=== PATIENT | female | born 1935 | race Caucasian/White ===

== ENCOUNTER 2018-07-28 11:59 | Inpatient (IN) ==
[2018-07-28] MEDS ORDERED: Ipratropium/Albuterol Neb 3 ML IH ONE (13:21)
--- NOTE | 2018-07-28 13:24 | Emergency Department Note ---
Disposition Clinical Impression: Bilateral pleural effusion, SOB (shortness of breath), Renal insufficiency, Bilateral leg edema Dyspnea Qualifiers: Dyspnea type: unspecified Qualified Code(s): R06.00 - Dyspnea, unspecified Disposition: Admitted As Inpatient Condition: Fair Referrals: Taina Saunders ASSOCIATE VICE PRESIDENT [Advanced Practice Nurse] - Forms: ED Satisfaction Letter Time of Disposition: 15:52 SOB HPI - General Chief Complaint: ED Shortness of Breath/Dyspnea Stated Complaint: Hypertension,FLAQUITO Time Seen by Provider: 07/28/18 13:05 - History of Present Illness 83-year-old female presents with three-day history of feeling like she cannot get enough air, and feeling as though her blood pressure is running high. Patient denies any history of smoking/smoke exposure, fever, lightheadedness, chest pain, respiratory disease. She does endorse a mild dry cough which she attributes to postnasal drainage, and a runny nose which she has had for 2 years. Patient denies any abdominal pain, problems with urination or constipation. Patient does report a history of mastectomy in December 2015. She is on metoprolol for blood pressure control and states that she is normally around 140-150, but is currently 161/92 on the monitor in the room. Patient reports a history of sick contact with her aunt, but states that she was using copious amounts of Lysol while around this person. - Related Data Home Medications Medication Instructions Recorded Confirmed Metoprolol Tartrate [Lopressor] 50 mg PO BID 04/04/16 07/10/18 Furosemide [Lasix] 20 mg PO DAILY PRN 12/05/17 07/10/18 Previous Rx's Medication Instructions Recorded Loratadine [Claritin] 10 mg PO DAILY #90 tablet 11/01/16 Loperamide [Imodium] 2 cap PO AD PRN #80 capsule 05/27/17 Ondansetron ODT [Zofran ODT] 4 mg SL Q6HR #30 tab.rapdis 10/11/17 Hydrocortisone 2.5% CREAM [Cortaid] 1 appl TP BID #1 tube 01/06/18 Cyclobenzaprine [Flexeril] 10 mg PO BID PRN #60 tablet 02/17/18 Anastrozole [Arimidex] 1 mg PO DAILY #30 tablet 03/24/18 Potassium Chloride [K-Tab ER] 20 meq PO BID #60 tablet.er 03/24/18 Pantoprazole Sodium [Protonix] 40 mg PO BID #60 tablet. 05/06/18 Sucralfate [Carafate] 1 gm PO TID #90 tablet 05/06/18 Lenalidomide [Revlimid] 10 mg PO DAILY #14 capsule 07/23/18 Allergies Allergy/AdvReac Type Severity Reaction Status Date / Time ciprofloxacin [From Cipro] AdvReac Gastrointestinal Verified 07/10/18 09:57 Upset All systems ED: reviewed and negative except as stated. Review of Systems: As Per HPI Constitutional: Denies: fever, chills ENT ED: Reports: congestion Cardiovascular: Reports: dyspnea on exertion. Denies: chest pain Respiratory: Reports: cough, dyspnea. Denies: wheezes, hemoptysis, sputum production Gastrointestinal: Denies: abdominal pain, nausea, vomiting, diarrhea, constipation Genitourinary: Denies: urgency, dysuria, frequency Past Medical History - Past Medical History Medical history: Reports: cancer, hypertension, other Surgical history: Reports: other Psychiatric history: Reports: no psych history COMMODITY LOAN CLERK history: Reports: no COMMODITY LOAN CLERK history - Social History Smoking Status: Former smoker Smokeless Tobacco Status: No Alcohol use: Reports: none Drug use: Reports: none Physical Exam - General Limitations: no limitations General appearance: alert, in no apparent distress - Head Head exam: atraumatic, normocephalic - Eye Eye exam: Present: normal appearance - Respiratory Respiratory exam: Present: normal lung sounds bilaterally - Cardiovascular Cardiovascular exam: Present: regular rate, normal rhythm, +S3 - Abdominal Exam Abdominal exam: Present: soft, Non-Tender - Extremities Exam Extremities exam: Present: other (mild LE edema to ankle) - Neurological Exam Neurological exam: Present: alert, oriented X3 - Psychiatric Psychiatric exam: Present: normal affect, normal mood - Skin Skin exam: Present: warm, dry, intact Course Course Narrative: Patient looks well on exam and does not appear to be in any apparent distress, she is saturating appropriately on room air, and she does not have any wheezes on exam. We will perform a portable chest x-ray, administer a DuoNeb, and perform basic laboratory work to include CBC, BMP, troponin. Additionally we will perform an EKG. - Reevaluation(s) Reevaluation #1: After breathing treatment, patient states that she feels as it is easier for her to breathe. Patient's chest x-ray was concerning for bilateral pleural effusio ns, as well as some infiltrates in the left lower lobe concerning for pneumonia. Additionally chest x-ray showed findings consistent with congestive heart failure, along with the physical exam findings of mild bilateral lower extremity edema. Given the patient's advanced age, as well as comorbidities, it is likely she will need to be admitted for further treatment. Time: 14:51 Reevaluation #2: Pt's BNP was >5,000 consisted with CHF exacerbation. Pt will be admitted to hospitalist service. Dr. Grove accepts. Time: 15:48 Vital Signs Temperature 97.6 F 07/28/18 12:03 Pulse Rate 72 07/28/18 12:03 Respiratory Rate 16 07/28/18 12:03 Blood Pressure 172/92 07/28/18 12:03 O2 Sat by Pulse Oximetry 92 07/28/18 12:03 Temperature 97.6 F 07/28/18 13:57 Pulse Rate 72 07/28/18 13:57 Respiratory Rate 16 07/28/18 13:57 Blood Pressure 172/92 07/28/18 13:57 O2 Sat by Pulse Oximetry 100 07/28/18 13:57 Oxygen Delivery Oxygen Delivery Room Air Shortness of Breath/Dyspnea - [facility] Narrative Medical decision making narrative: Pt admitted to Dr. Combs that her symptoms began in bed while she was sleeping and she was having trouble laying flat. Additionally, her CXR was concerning for osiel pleural effusions and a questionable infiltrate in her LLL. Given her osiel LE edema, difficulty breathing, elevated BNP, elevated troponin, and multiple comorbidities, pt will be admitted for optimization of medical therapy and possible cardiac workup. Pt verbalized understanding and agreement with the plan. Pt was given an opportunity for questions and all of her concerns were addressed. - Differential Diagnosis Likely: congestive heart failure - Medical Records Medical records reviewed: Yes I reviewed the patient's medical records. - Lab Data Lab results reviewed: Yes I reviewed the patient's lab results. Result diagrams: 07/28/18 13:44 07/28/18 13:44 Lab Results 07/28/18 07/28/18 07/28/18 Range/Units 13:44 13:44 13:44 WBC 4.9 (4.3-11.1) K/mcL RBC 3.66 L (3.82-4.97) M/mcL Hgb 11.5 (11.5-15.4) g/dL Hct 35.4 (35.3-44.9) % MCV 96.7 (83.0-100.0) fL MCH 31.4 (28.0-33.3) pg MCHC 32.5 (31.6-35.5) g/dL RDW 17.3 H (11.5-14.5) % Plt Count 174 (140-400) K/mcL MPV 9.5 (9.4-12.4) fL Immature Gran % 0.2 (0-4) % Seg Neutrophils % 55.1 % Lymphocytes % 33.8 % Monocytes % 9.7 % Eosinophils % 0.4 % Basophils % 0.8 % Neutrophils # 2.7 (1.6-8.9) K/mcL Lymphocytes # 1.6 (0.6-4.6) K/mcL Monocytes # 0.5 (0.0-1.3) K/mcL Eosinophils # 0.0 (0.0-0.6) K/mcL Basophils # 0.0 (0.0-0.2) K/mcL Sodium 137 (136-145) mEq/L Potassium 5.1 (3.5-5.1) mEq/L Chloride 106 (98-107) mEq/L Carbon Dioxide 19 L (23-29) mEq/L BUN 30 H (8-23) mg/dL Creatinine 1.65 H (0.60-1.20) mg/dL Est GFR ( Amer) 36 L (> 60) Est GFR (Non-Af Amer) 30 L (> 60) BUN/Creatinine Ratio 18 (6-26) Glucose 93 (70-105) mg/dL Calculated Osmolality 290 (280-300) Calcium 9.0 (8.6-10.3) mg/dL Troponin I 0.06 H* (< 0.04) ng/mL B-Natriuretic Peptide (Less than 100) pg/mL 07/28/18 Range/Units 13:44 WBC (4.3-11.1) K/mcL RBC (3.82-4.97) M/mcL Hgb (11.5-15.4) g/dL Hct (35.3-44.9) % MCV (83.0-100.0) fL MCH (28.0-33.3) pg MCHC (31.6-35.5) g/dL RDW (11.5-14.5) % Plt Count (140-400) K/mcL MPV (9.4-12.4) fL Immature Gran % (0-4) % Seg Neutrophils % % Lymphocytes % % Monocytes % % Eosinophils % % Basophils % % Neutrophils # (1.6-8.9) K/mcL Lymphocytes # (0.6-4.6) K/mcL Monocytes # (0.0-1.3) K/mcL Eosinophils # (0.0-0.6) K/mcL Basophils # (0.0-0.2) K/mcL Sodium (136-145) mEq/L Potassium (3.5-5.1) mEq/L Chloride (98-107) mEq/L Carbon Dioxide (23-29) mEq/L BUN (8-23) mg/dL Creatinine (0.60-1.20) mg/dL Est GFR ( Amer) (> 60) Est GFR (Non-Af Amer) (> 60) BUN/Creatinine Ratio (6-26) Glucose (70-105) mg/dL Calculated Osmolality (280-300) Calcium (8.6-10.3) mg/dL Troponin I (< 0.04) ng/mL B-Natriuretic Peptide > 5000 H (Less than 100) pg/mL - Radiology Data Radiology results reviewed: Yes I reviewed the patient's radiology results. - EKG Data EKG attestation: Yes I reviewed and interpreted this EKG. EKG results narrative: HR 68, sinus rhythm, left axis. AK 218 which is slightly prolonged. No evidence of ST elevation or depression. EKG largely unchanged from previous on 04/27/18 which shows Left anterior fascicular block, and LVH with secondary repolarization abnormality. No signs of acute ischemia.
--- NOTE | 2018-07-28 13:36 | Emergency Department Note ---
Disposition Clinical Impression: Bilateral pleural effusion, SOB (shortness of breath), Renal insufficiency Disposition: Admitted As Inpatient Referrals: Taina Saunders CNP [Primary Care Provider] - Forms: ED Satisfaction Letter General Adult HPI - General Chief complaint: ED Shortness of Breath/Dyspnea Stated complaint: Hypertension,FLAQUITO Time Seen by Provider: 07/28/18 13:05 Limitations: no limitations - History of Present Illness Pain Scale: 0 - Related Data Home Medications Medication Instructions Recorded Confirmed Metoprolol Tartrate [Lopressor] 50 mg PO BID 04/04/16 07/10/18 Furosemide [Lasix] 20 mg PO DAILY PRN 12/05/17 07/10/18 Previous Rx's Medication Instructions Recorded Loratadine [Claritin] 10 mg PO DAILY #90 tablet 11/01/16 Loperamide [Imodium] 2 cap PO AD PRN #80 capsule 05/27/17 Ondansetron ODT [Zofran ODT] 4 mg SL Q6HR #30 tab.rapdis 10/11/17 Hydrocortisone 2.5% CREAM [Cortaid] 1 appl TP BID #1 tube 01/06/18 Cyclobenzaprine [Flexeril] 10 mg PO BID PRN #60 tablet 02/17/18 Anastrozole [Arimidex] 1 mg PO DAILY #30 tablet 03/24/18 Potassium Chloride [K-Tab ER] 20 meq PO BID #60 tablet.er 03/24/18 Pantoprazole Sodium [Protonix] 40 mg PO BID #60 tablet. 05/06/18 Sucralfate [Carafate] 1 gm PO TID #90 tablet 05/06/18 Lenalidomide [Revlimid] 10 mg PO DAILY #14 capsule 07/23/18 Allergies Allergy/AdvReac Type Severity Reaction Status Date / Time ciprofloxacin [From Cipro] AdvReac Gastrointestinal Verified 07/10/18 09:57 Upset Past Medical History - Past Medical History Medical history: Reports: cancer, hypertension, other Surgical history: Reports: other Psychiatric history: Reports: no psych history SERVICES MGR history: Reports: no SERVICES MGR history - Social History Smoking Status: Former smoker Smokeless Tobacco Status: No Alcohol use: Reports: none Drug use: Reports: none Physical Exam - General Limitations: no limitations General appearance: alert, in no apparent distress Course Vital Signs Temperature 97.6 F 07/28/18 12:03 Pulse Rate 72 07/28/18 12:03 Respiratory Rate 16 07/28/18 12:03 Blood Pressure 172/92 07/28/18 12:03 O2 Sat by Pulse Oximetry 92 07/28/18 12:03 Temperature 97.6 F 07/28/18 13:57 Pulse Rate 72 07/28/18 13:57 Respiratory Rate 16 07/28/18 13:57 Blood Pressure 172/92 07/28/18 13:57 O2 Sat by Pulse Oximetry 100 07/28/18 13:57 Oxygen Delivery Oxygen Delivery Room Air Medical Decision Making - MDM Narrative Medical decision making narrative: Patient has bilateral pleural effusions. Small. BNP elevated. Troponin is always elevated. ekg ok will admit needs cardiac eval. - Medical Records Medical records reviewed: Yes I reviewed the patient's medical records. - Lab Data Lab results reviewed: Yes I reviewed the patient's lab results. Result diagrams: 07/28/18 13:44 07/28/18 13:44 Lab Results 07/28/18 07/28/18 07/28/18 Range/Units 13:44 13:44 13:44 WBC 4.9 (4.3-11.1) K/mcL RBC 3.66 L (3.82-4.97) M/mcL Hgb 11.5 (11.5-15.4) g/dL Hct 35.4 (35.3-44.9) % MCV 96.7 (83.0-100.0) fL MCH 31.4 (28.0-33.3) pg MCHC 32.5 (31.6-35.5) g/dL RDW 17.3 H (11.5-14.5) % Plt Count 174 (140-400) K/mcL MPV 9.5 (9.4-12.4) fL Immature Gran % 0.2 (0-4) % Seg Neutrophils % 55.1 % Lymphocytes % 33.8 % Monocytes % 9.7 % Eosinophils % 0.4 % Basophils % 0.8 % Neutrophils # 2.7 (1.6-8.9) K/mcL Lymphocytes # 1.6 (0.6-4.6) K/mcL Monocytes # 0.5 (0.0-1.3) K/mcL Eosinophils # 0.0 (0.0-0.6) K/mcL Basophils # 0.0 (0.0-0.2) K/mcL Sodium 137 (136-145) mEq/L Potassium 5.1 (3.5-5.1) mEq/L Chloride 106 (98-107) mEq/L Carbon Dioxide 19 L (23-29) mEq/L BUN 30 H (8-23) mg/dL Creatinine 1.65 H (0.60-1.20) mg/dL Est GFR ( Amer) 36 L (> 60) Est GFR (Non-Af Amer) 30 L (> 60) BUN/Creatinine Ratio 18 (6-26) Glucose 93 (70-105) mg/dL Calculated Osmolality 290 (280-300) Calcium 9.0 (8.6-10.3) mg/dL Troponin I 0.06 H* (< 0.04) ng/mL B-Natriuretic Peptide (Less than 100) pg/mL 07/28/18 Range/Units 13:44 WBC (4.3-11.1) K/mcL RBC (3.82-4.97) M/mcL Hgb (11.5-15.4) g/dL Hct (35.3-44.9) % MCV (83.0-100.0) fL MCH (28.0-33.3) pg MCHC (31.6-35.5) g/dL RDW (11.5-14.5) % Plt Count (140-400) K/mcL MPV (9.4-12.4) fL Immature Gran % (0-4) % Seg Neutrophils % % Lymphocytes % % Monocytes % % Eosinophils % % Basophils % % Neutrophils # (1.6-8.9) K/mcL Lymphocytes # (0.6-4.6) K/mcL Monocytes # (0.0-1.3) K/mcL Eosinophils # (0.0-0.6) K/mcL Basophils # (0.0-0.2) K/mcL Sodium (136-145) mEq/L Potassium (3.5-5.1) mEq/L Chloride (98-107) mEq/L Carbon Dioxide (23-29) mEq/L BUN (8-23) mg/dL Creatinine (0.60-1.20) mg/dL Est GFR ( Amer) (> 60) Est GFR (Non-Af Amer) (> 60) BUN/Creatinine Ratio (6-26) Glucose (70-105) mg/dL Calculated Osmolality (280-300) Calcium (8.6-10.3) mg/dL Troponin I (< 0.04) ng/mL B-Natriuretic Peptide > 5000 H (Less than 100) pg/mL - Radiology Data Radiology results reviewed: Yes I reviewed the patient's radiology results. Critical Care Time Critical Care Time: No Attestation Statement - Attestation Attestation: I examined this patient and my medical decision-making was reviewed with the Resident Physician. I agree with the documented findings, disposition and treatment plan as described except to the extent set forth below. 83-year-old female in presented to the emergency room for difficulty breathing. Symptom onset yesterday. States she feels that she cannot get enough air in. She denies any chest pain. No cough or sputum production. No fevers or chills. No new swelling or pain in her legs. No history of DVT or PE. She states she does have a history of breast cancer and had a mastectomy done 2016. 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 That was on 2016. She has no other complaints at this time. She specifically denies any chest pain. No recent illness or sickness. No cough or sputum. No smoking. No lung disease. Her oxygen saturations are normal on room air. They are running anywhere from 97 8% on room air. She is not tachycardic. EKG was unremarkable. Check some screening labs as well as a chest x-ray.
[2018-07-28 14:03] LABS: Basophils % 0.8 %; Eosinophils % 0.4 %; Hematocrit 35.4 % (35.3-44.9); Hemoglobin 11.5 g/dL (11.5-15.4); Immature Granulocytes % 0.2 % (0-4); Lymphocytes # 1.6 K/mcL (0.6-4.6); Lymphocytes % 33.8 %; Mean Corpuscular HGB Conc 32.5 g/dL (31.6-35.5); Mean Corpuscular Hemoglobin 31.4 pg (28.0-33.3); Mean Corpuscular Volume 96.7 fL (83.0-100.0); Mean Platelet Volume 9.5 fL (9.4-12.4); Monocytes # 0.5 K/mcL (0.0-1.3); Monocytes % 9.7 %; Neutrophils # 2.7 K/mcL (1.6-8.9); Platelet Count 174 K/mcL (140-400); Red Blood Count 3.66 M/mcL (3.82-4.97); Red Cell Distribution Width 17.3 % (11.5-14.5); Segmented Neutrophils % 55.1 %
[2018-07-28 14:25] LABS: Potassium 5.1 mEq/L (3.5-5.1)
[2018-07-28] MEDS ORDERED: Naloxone 0.4 MG/ML INJ IVP PRN (16:14)
[2018-07-28] MEDS ORDERED: Furosemide 20 MG/2 ML VIAL IVP ONE (16:17)
--- NOTE | 2018-07-28 16:30 | Internal Med History&Physical ---
Date of Encounter: 07/28/18 Time of Encounter: 09:00 Internal Medicine - H&P: HPI Chief complaint: Shortness of breath Admitted From: Home Plans for Post Hospital Care: Home History of present illness: Ms. Portillo is a 83 year old female present to ER for increased the shortness of breath. Past medical history is significant for systolic CHF with LVEF 45-50%, hypertension, breast cancer, multiple myeloma, anemia Patient has progressively increased shortness of breath in last 1- 2 days. Patient denies cough, fever, chest pain. Patient has mild nausea but no vomiting. Patient sleep on her side which make her feel relief. Patient is generally still doing daily activity. Patient has a history of systolic CHF and take Lasix in an as needed pattern and off Lasix for a while. Since yesterday, she noticed bilateral ankle swelling. In the emergency room, chest x-ray shows mild bilateral pleural effusion. BNP over 5000. Patient was admitted for CHF exacerbation. I have discussed CODE STATUS with this patient. Patient is AAO 3. Patient clearly told me she does not want CPR. Regarding intubation, she said she has not determined yet but agrees at this point documented as "accept intubation". She was informed she can change her mind any time and we can change her CODE STATUS. DNR CCA order placed. Past Med Surg Social Fam HX - Past Medical History Medical history: cancer, hypertension, other Additional medical history: htn. breast cancer,right. multiple myeloma Psychiatric history: no psych history - Past Surgical History Surgical History: other Additional surgical history: rt hip replacement. c section x2. LEFT MASTECTOMY - Social History Smoking Status: Former smoker Smokeless Tobacco Status: No Alcohol use: none Drug use: none - Family History Mother History Unknown: Yes Internal Medicine - H&P: Meds Metoprolol Tartrate [Lopressor] 50 mg PO BID 04/04/16 [History] Loratadine [Claritin] 10 mg PO DAILY #90 tablet 11/01/16 [Rx] Loperamide [Imodium] 2 cap PO AD PRN #80 capsule 05/27/17 [Rx] Ondansetron ODT [Zofran ODT] 4 mg SL Q6HR #30 tab.rapdis 10/11/17 [Rx] Furosemide [Lasix] 20 mg PO DAILY PRN 12/05/17 [History] Hydrocortisone 2.5% CREAM [Cortaid] 1 appl TP BID #1 tube 01/06/18 [Rx] Cyclobenzaprine [Flexeril] 10 mg PO BID PRN #60 tablet 02/17/18 [Rx] Anastrozole [Arimidex] 1 mg PO DAILY #30 tablet 03/24/18 [Rx] Potassium Chloride [K-Tab ER] 20 meq PO BID #60 tablet.er 03/24/18 [Rx] Pantoprazole Sodium [Protonix] 40 mg PO BID #60 tablet.dr 05/06/18 [Rx] Sucralfate [Carafate] 1 gm PO TID #90 tablet 05/06/18 [Rx] Lenalidomide [Revlimid] 10 mg PO DAILY #14 capsule 07/23/18 [Rx] Allergy/AdvReac Type Severity Reaction Status Date / Time ciprofloxacin [From Cipro] AdvReac Gastrointestinal Verified 07/10/18 09:57 Upset All Systems PM: A 10-system review of systems was performed and is negative for pertinent findings except as documented above in the HPI. - Constitutional Vitals: Temp Pulse Resp BP Pulse Ox 97.6 F 72 16 172/92 100 07/28/18 13:57 07/28/18 13:57 07/28/18 13:57 07/28/18 13:57 07/28/18 13:57 Exam: Pt is AAO x 3, in NAD HEENT: NC/AT, PERRL Neck: Supple, no JVD, no LAD Lungs: CTA b/l Heart: S1S2, RRR Abd: Soft, nontender, BS present Ext: ROM wnl, mild bilateral pedal edema Neuro: No focal deficit Internal Med - H&P Results - Labs CBC & Chem 7: 07/28/18 13:44 07/28/18 13:44 Labs: Short CBC 07/28/18 Range/Units 13:44 WBC 4.9 (4.3-11.1) K/mcL Hgb 11.5 (11.5-15.4) g/dL Hct 35.4 (35.3-44.9) % Plt Count 174 (140-400) K/mcL Neutrophils # 2.7 (1.6-8.9) K/mcL BMP 07/28/18 13:44 Sodium 137 Potassium 5.1 Chloride 106 Carbon Dioxide 19 L BUN 30 H Creatinine 1.65 H Glucose 93 Calcium 9.0 Cardiac Enzymes 07/28/18 Range/Units 13:44 Troponin I 0.06 H* (< 0.04) ng/mL - Impressions ITS Impressions Chest X-Ray 07/28/18 13:21 IMPRESSION: 1. Small bilateral pleural effusions with associated bibasilar atelectasis, new since the previous chest x-ray on 03/27/2016. Superimposed pneumonia cannot be excluded. D/ / 07/28/2018 14:38:07 Danny Walsh MD / jak Interpreting Provider: Danny Walsh MD - Assessment and plan (1) Acute on chronic combined systolic (congestive) and diastolic (congestive) heart failure Current Visit: Yes Status: Acute Assessment and plan: Patient has history of CHF with LVEF 45-50% and LV wall thickness. Consider combined systolic and diastolic CHF. Patient has a worsening shortness of breath with elevated BNP and newly developed bilateral pleural effusion. Patient also has increased bilateral ankle swelling. Consider CHF exacerbation. - Place patient on continuous cardiac monitoring - Lasix 20 mg IV once now. Started from tomorrow morning 20 mg IV daily - Strict I and O - Fluid restriction diet - Repeat echocardiogram (2) CKD (chronic kidney disease) stage 3, GFR 30-59 ml/min Current Visit: No Status: Suspected Assessment and plan: Creatinine is at baseline. Closely monitor creatinine level. Avoid nephrotoxic medications (3) Breast cancer Current Visit: No Status: Acute Assessment and plan: Had the surgery. Continue home medication anastrozole. Patient will follow-up with oncology as outpatient Qualifiers: Breast location: central portion of breast Laterality: left Qualified Code(s): C50.112 - Malignant neoplasm of central portion of left female breast; Z17.0 - Estrogen receptor positive status [ER+] (4) Multiple myeloma Current Visit: No Status: Chronic Assessment and plan: Continue home medication Revlimid, continue follow up with oncology as outpatie nt Qualifiers: Multiple myeloma remission status: not in remission Qualified Code(s): C90.00 - Multiple myeloma not having achieved remission (5) Hypertension Current Visit: No Status: Acute Assessment and plan: Poorly controlled hypertension. Will resume home medication, may adjust medication for better BP control Qualifiers: Hypertension type: essential hypertension Qualified Code(s): I10 - Essential (primary) hypertension - Time Spent With Patient Total time spent is greater than 50% in coordination of care (as documented) at patient's floor/unit and/or counseling patient: 40 minutes Greater than 35 minutes
[2018-07-28] MEDS: Sucralfate 1 GM TABLET PO SCH (18:19)
[2018-07-28 22:04] LABS: Potassium 3.7 mEq/L (3.5-5.1)
[2018-07-28 22:06] LABS: Troponin I 0.05 ng/mL (< 0.04)
[2018-07-29 01:34] LABS: Eosinophils % 1.9 %; Hematocrit 37.5 % (35.3-44.9); Immature Granulocytes % 0.2 % (0-4); Lymphocytes % 35.9 %; Mean Corpuscular Hemoglobin 30.7 pg (28.0-33.3); Mean Corpuscular Volume 95.9 fL (83.0-100.0); Mean Platelet Volume 9.6 fL (9.4-12.4); Platelet Count 161 K/mcL (140-400); Red Blood Count 3.91 M/mcL (3.82-4.97); Red Cell Distribution Width 17.6 % (11.5-14.5); Segmented Neutrophils % 52.4 %
[2018-07-29 01:35] LABS: Basophils % 0.6 %; Eosinophils # 0.1 K/mcL (0.0-0.6); Lymphocytes # 1.7 K/mcL (0.6-4.6); Monocytes # 0.4 K/mcL (0.0-1.3); Neutrophils # 2.5 K/mcL (1.6-8.9); Nucleated Red Blood Cells 0.4 /100 WBC (0)
[2018-07-29 01:55] LABS: Potassium 3.6 mEq/L (3.5-5.1)
[2018-07-29 01:59] LABS: Troponin I 0.06 ng/mL (< 0.04)
[2018-07-29] MEDS: Acetaminophen 325 MG TABLET PO PRN ×2 (03:14→13:32)
[2018-07-29 06:54] LABS: Calcium 8.8 mg/dL (8.6-10.3); Potassium 3.9 mEq/L (3.5-5.1)
[2018-07-29] MEDS: Anastrozole 1 MG TABLET PO SCH (07:54)
[2018-07-29] MEDS: Loratadine 10 MG TABLET PO SCH (07:54)
[2018-07-29] MEDS: Sucralfate 1 GM TABLET PO SCH ×3 (07:54→16:28)
[2018-07-29] MEDS ORDERED: Lenalidomide [Revlimid] 10 MG PO SCH (09:00)
[2018-07-29] MEDS ORDERED: Furosemide 20 MG/2 ML VIAL IVP SCH (09:00)
--- NOTE | 2018-07-29 10:31 | Electrocardiograph Report ---
[employer] [facility] Test Date: 2018-07-28 Pat Name: Ijeoma Portillo Department: [id number] Room: 2A Gender: F Radiation Control Technician: : 1935 Requested By: Paris Anaya Order Number: [id number] Reading MD: Rafael Weller Measurements Intervals [place] Rate: 68 P: 31 UT: 218 QRS: -82 QRSD: 113 T: 90 QT: 468 QTc: 498 Interpretive Statements Sinus rhythm Borderline prolonged UT interval Left anterior fascicular block LVH with secondary repolarization abnormality Anterior Q waves, possibly due to LVH Electronically Signed On 07-29-2018 10:30:00 EST by Rafael Weller
[2018-07-29] MEDS: Furosemide 20 MG TABLET PO SCH (10:49)
--- NOTE | 2018-07-29 12:11 | Internal Med Progress Note ---
Hospitalist Progress Note - Encounter Date of Encounter: 07/29/18 Time of Encounter: 09:00 - Subjective Interval History: Patient to feel less shortness of breath. More tolerate exertion. Refused to take more IV Lasix because "it makes her go to bathroom every 20 minutes". Vitals are stable. Echo pending. Will switch Lasix to by mouth - Exam Vitals: Temp Pulse Resp BP Pulse Ox 97.9 F 66 18 134/68 96 07/29/18 07:13 07/29/18 07:13 07/29/18 07:13 07/29/18 07:13 07/29/18 07:13 Exam: Pt is AAO x 3, in NAD HEENT: NC/AT, PERRL Neck: Supple, no JVD, no LAD Lungs: CTA b/l Heart: S1S2, RRR Abd: Soft, nontender, BS present Ext: ROM wnl, mild bilateral pedal edema, improved Neuro: No focal deficit - Assessment and Plan (1) Acute on chronic combined systolic (congestive) and diastolic (congestive) heart failure Current Visit: Yes Status: Acute Assessment and Plan: Patient has history of CHF with LVEF 45-50% and LV wall thickness. Consider combined systolic and diastolic CHF. Patient has a worsening shortness of breath with elevated BNP and newly developed bilateral pleural effusion. Patient also has increased bilateral ankle swelling. Consider CHF exacerbation. - Place patient on continuous cardiac monitoring - Lasix 20 mg po daily - Strict I and O - Fluid restriction diet - Repeat echocardiogram pending (2) CKD (chronic kidney disease) stage 3, GFR 30-59 ml/min Current Visit: No Status: Suspected Assessment and Plan: Creatinine is at baseline. Closely monitor creatinine level. Avoid nephrotoxic medications (3) Breast cancer Current Visit: No Status: Acute Assessment and Plan: Had the surgery. Continue home medication anastrozole. Patient will follow-up with oncology as outpatient (4) Multiple myeloma Current Visit: No Status: Chronic Assessment and Plan: Continue home medication Revlimid, continue follow up with oncology as outpat ient (5) Hypertension Current Visit: No Status: Acute Assessment and Plan: Cont home meds, closely monitor BP - Time Spent with Patient Total time spent is greater than 50% in coordination of care (as documented) at patient's floor/unit and/or counseling patient: 30 min 25 - 35 minutes Plan of Care Discussed with: patient Internal Medicine: Result - Labs CBC & Chem 7: 07/29/18 00:59 07/29/18 06:21 Labs: Short CBC 07/28/18 07/29/18 Range/Units 13:44 00:59 WBC 4.9 4.7 (4.3-11.1) K/mcL Hgb 11.5 12.0 (11.5-15.4) g/dL Hct 35.4 37.5 (35.3-44.9) % Plt Count 174 161 (140-400) K/mcL Neutrophils # 2.7 2.5 (1.6-8.9) K/mcL BMP 07/28/18 07/28/18 07/29/18 13:44 20:54 00:59 Sodium 137 138 Potassium 5.1 3.7 D 3.6 Chloride 106 102 Carbon Dioxide 19 L 22 L BUN 30 H 30 H Creatinine 1.65 H 1.67 H Glucose 93 107 H Calcium 9.0 9.0 07/29/18 07/29/18 00:59 06:21 Sodium 137 Potassium 3.6 3.9 Chloride 102 Carbon Dioxide 28 BUN 29 H Creatinine 1.82 H Glucose 114 H Calcium 8.8 Cardiac Enzymes 07/28/18 07/28/18 07/29/18 Range/Units 13:44 20:54 00:59 Troponin I 0.06 H* 0.05 H* 0.06 H* (< 0.04) ng/mL 07/29/18 Range/Units 09:07 Troponin I 0.07 H* (< 0.04) ng/mL - Impressions Impressions Chest X-Ray 07/28/18 13:21 IMPRESSION: 1. Small bilateral pleural effusions with associated bibasilar atelectasis, new since the previous chest x-ray on 03/27/2016. Superimposed pneumonia cannot be excluded. D/ / 07/28/2018 14:38:07 Danny Walsh MD / jak Interpreting Provider: Danny Walsh MD Consult Discharge Plan - Plan Referrals: Taina Saunders, [employer] [Primary Care Provider] - (3) Breast cancer Qualifiers: Breast location: central portion of breast Laterality: left Qualified Code(s): C50.112 - Malignant neoplasm of central portion of left female breast; Z17.0 - Estrogen receptor positive status [ER+] (4) Multiple myeloma Qualifiers: Multiple myeloma remission status: not in remission Qualified Code(s): C90.00 - Multiple myeloma not having achieved remission (5) Hypertension Qualifiers: Hypertension type: essential hypertension Qualified Code(s): I10 - Essential (primary) hypertension
[2018-07-29] MEDS ORDERED: tiZANidine 4 MG TABLET PO ONE (20:20)
[2018-07-30 07:28] LABS: Basophils % 0.5 %; Eosinophils # 0.2 K/mcL (0.0-0.6); Eosinophils % 4.5 %; Hematocrit 34.3 % (35.3-44.9); Hemoglobin 10.9 g/dL (11.5-15.4); Immature Granulocytes % 0.2 % (0-4); Lymphocytes % 24.5 %; Mean Corpuscular HGB Conc 31.8 g/dL (31.6-35.5); Mean Corpuscular Hemoglobin 30.8 pg (28.0-33.3); Mean Corpuscular Volume 96.9 fL (83.0-100.0); Mean Platelet Volume 10.2 fL (9.4-12.4); Monocytes # 0.3 K/mcL (0.0-1.3); Monocytes % 7.4 %; Neutrophils # 2.7 K/mcL (1.6-8.9); Platelet Count 145 K/mcL (140-400); Red Blood Count 3.54 M/mcL (3.82-4.97); Red Cell Distribution Width 17.7 % (11.5-14.5); Segmented Neutrophils % 62.9 %
[2018-07-30] MEDS: Loratadine 10 MG TABLET PO SCH (07:30)
[2018-07-30] MEDS: Sucralfate 1 GM TABLET PO SCH ×2 (07:30→10:57)
[2018-07-30] MEDS: Furosemide 20 MG TABLET PO SCH (07:30)
[2018-07-30] MEDS: Anastrozole 1 MG TABLET PO SCH (07:31)
[2018-07-30 07:45] LABS: Calcium 8.4 mg/dL (8.6-10.3); Potassium 3.2 mEq/L (3.5-5.1)
--- NOTE | 2018-07-30 09:51 | Discharge Summary ---
- NOTES TO OUTPATIENT PROVIDER Notes to Outpatient Provider: 1. Will refer pt to see cardiology b/o systolic CHF. Add lasix, and losartan to home medication list. Please f/u BP and fluid status. 2. Please also follow up with potassium level and renal function as pt is on new meds with may affect her levels and she is on high dose potassium pills already. Date of Encounter: 07/30/18 Time of Encounter: 09:00 - Discharge Diagnosis (1) Acute on chronic combined systolic (congestive) and diastolic (congestive) heart failure Priority: Primary Status: Acute (2) CKD (chronic kidney disease) stage 3, GFR 30-59 ml/min Priority: Secondary Status: Suspected (3) Breast cancer Priority: Secondary Status: Acute Qualifiers: Breast location: central portion of breast Laterality: left Qualified Cod e(s): C50.112 - Malignant neoplasm of central portion of left female breast; Z17.0 - Estrogen receptor positive status [ER+] (4) Multiple myeloma Priority: Secondary Status: Chronic Qualifiers: Multiple myeloma remission status: not in remission Qualified Code(s): C90.00 - Multiple myeloma not having achieved remission (5) Hypertension Priority: Secondary Status: Acute Qualifiers: Hypertension type: essential hypertension Qualified Code(s): I10 - Essential (primary) hypertension Hospital course: Ms. Portillo is a 83 year old female admitted for shortness of breath. Her BNP is over 5000. Patient has history of systolic CHF. Patient was considered CHF exacerbation. She was placed on IV Lasix, which is switched to by mouth laterly. After treatment, patient's symptoms has significantly improved. No further shortness of breath. More tolerate exertion. Vitals are stable. SPO2 98% in room air. will DC patient home with low-dose by mouth Lasix. Follow-up with PCP in one week for fluid status evaluation and BMP for potassium and renal function. Will also refer patient to see cardiology as her systolic function slightly declined the from previous echo in November 2017 (LVEF fron 45-50% to 40%). I have seen and examined the patient today. Patient is awake alert oriented 3. Said shortness of breath has significantly decreased. Vitals are stable. We will discharge patient home and continue follow-up with PCP as outpatient. Discharge discussed with: patient - Time Spent with Patient Total time spent providing and/or coordinating discharge services: 25 minutes Less than 30 minutes - Discharge Medications Prescriptions: Furosemide [Lasix] 20 mg PO DAILY 30 Days #30 tablet Losartan [Cozaar] 12.5 mg PO DAILY 60 Days #30 tablet Home Medications: Metoprolol Tartrate [Lopressor] 50 mg PO BID 04/04/16 [History] Loratadine [Claritin] 10 mg PO DAILY #90 tablet 11/01/16 [Rx] Loperamide [Imodium] 2 cap PO AD PRN #80 capsule 05/27/17 [Rx] Ondansetron ODT [Zofran ODT] 4 mg SL Q6HR #30 tab.rapdis 10/11/17 [Rx] Cyclobenzaprine [Flexeril] 10 mg PO BID PRN #60 tablet 02/17/18 [Rx] Anastrozole [Arimidex] 1 mg PO DAILY #30 tablet 03/24/18 [Rx] Potassium Chloride [K-Tab ER] 20 meq PO BID #60 tablet.er 03/24/18 [Rx] Pantoprazole Sodium [Protonix] 40 mg PO BID #60 tablet.dr 05/06/18 [Rx] Sucralfate [Carafate] 1 gm PO TID #90 tablet 05/06/18 [Rx] Lenalidomide [Revlimid] 10 mg PO DAILY #14 capsule 07/23/18 [Rx] Diphenoxylate/Atropine [Lomotil 2.5 mg/0.025 mg] 1 tab PO BID PRN 07/28/18 [History] Hydrocortisone 2.5% CREAM [Cortaid] 1 appl TP BID PRN 07/28/18 [History] Furosemide [Lasix] 20 mg PO DAILY 30 Days #30 tablet 07/30/18 [Rx] Losartan [Cozaar] 12.5 mg PO DAILY 60 Days #30 tablet 07/30/18 [Rx] Allergies/Adverse Reactions: Allergy/AdvReac Type Severity Reaction Status Date / Time ciprofloxacin [From Cipro] AdvReac Gastrointestinal Verified 07/10/18 09:57 Upset Date of admission: 07/29/18 12:47 Primary care physician: SHELIA Cerda Discharging clinician: Jonathan Beard Anticipated date of discharge: 07/30/18 - Constitutional Vitals: Temp Pulse Resp BP Pulse Ox 97.8 F 61 18 144/74 98 07/30/18 07:18 07/30/18 07:18 07/30/18 07:18 07/30/18 07:18 07/30/18 07:18 Exam: Pt is AAO x 3, in NAD HEENT: NC/AT, PERRL Neck: Supple, no JVD, no LAD Lungs: CTA b/l Heart: S1S2, RRR Abd: Soft, nontender, BS present Ext: ROM wnl, no pedal edema Neuro: No focal deficit - Patient Status Disposition: Home, Self-Care Condition: Fair Functional capacity at discharge: uses cane/walker Overall status at discharge: patient is back to baseline - Discharge Instructions Follow Up With: Taina Saunders [employer] MANAGER [Primary Care Provider] - 08/06/18 (called and left a message) - Diet and Activity Activity: increase activity as tolerated Diet: low fat, low cholesterol, low salt diet
[2018-07-30 11:29] VITALS: BP 161/79
== END 2018-07-30 11:50 | disposition home or self-care (01) | DRG 291 ==
LOC: EMEROOARM 11:59 → 2ANU 11:59
PROVIDERS: ADMIT Internal Medicine; ATTEND Internal Medicine

== ENCOUNTER 2020-11-20 14:02 | Inpatient (IN) ==
[2020-11-20 15:48] LABS: Basophils % 0.4 %; Eosinophils # 0.1 K/mcL (0.0-0.6); Eosinophils % 0.7 %; Hematocrit 39.5 % (35.3-44.9); Hemoglobin 12.2 g/dL (11.5-15.4); Immature Granulocytes % 0.5 % (0-4); Lymphocytes # 1.1 K/mcL (0.6-4.6); Lymphocytes % 11.8 %; Mean Corpuscular HGB Conc 30.9 g/dL (31.6-35.5); Mean Corpuscular Hemoglobin 29.5 pg (28.0-33.3); Mean Corpuscular Volume 95.6 fL (83.0-100.0); Mean Platelet Volume 9.6 fL (9.4-12.4); Monocytes # 0.6 K/mcL (0.0-1.3); Neutrophils # 7.3 K/mcL (1.6-8.9); Platelet Count 161 K/mcL (140-400); Red Blood Count 4.13 M/mcL (3.82-4.97); Segmented Neutrophils % 79.6 %; White Blood Count 9.2 K/mcL (4.3-11.1)
[2020-11-20 16:10] LABS: Calcium 9.2 mg/dL (8.6-10.3); Potassium 4.6 mEq/L (3.5-5.1)
[2020-11-20] MEDS ORDERED: Isovue-370 500 ML BOTTLE IVP ONE (16:17)
[2020-11-20 16:19] LABS: Troponin I 0.63 ng/mL (< 0.04)
[2020-11-20] MEDS ORDERED: *HR* Heparin 5,000 UNIT/ML VIAL IVP PRN ×2 (17:14)
[2020-11-20] MEDS ORDERED: *HR* Heparin 5,000 UNIT/ML VIAL IVP ONE (17:14)
[2020-11-20] MEDS ORDERED: Heparin 25,000UNIT/250ML 1/2NS 25,000 UNIT/250 ML IV.SOLN IVC SCH (17:15)
[2020-11-20 18:02] LABS: Hematocrit 36.1 % (35.3-44.9); Hemoglobin 11.3 g/dL (11.5-15.4); Mean Corpuscular HGB Conc 31.3 g/dL (31.6-35.5); Mean Corpuscular Hemoglobin 29.4 pg (28.0-33.3); Mean Platelet Volume 9.6 fL (9.4-12.4); Platelet Count 146 K/mcL (140-400); Red Blood Count 3.84 M/mcL (3.82-4.97)
[2020-11-20 18:09] LABS: Heparin anti-factor XA UFH < 0.04 IU/mL (0.30-0.70)
[2020-11-20 18:10] LABS: Prothrombin Time 11.8 Seconds (9.4-12.1)
[2020-11-20] MEDS ORDERED: Acetaminophen 325 MG TABLET PO PRN (18:17)
[2020-11-20] MEDS ORDERED: Melatonin 3 MG TABLET PO PRN (18:17)
[2020-11-20] MEDS ORDERED: Naloxone 0.4 MG/ML INJ IVP PRN (18:17)
[2020-11-20] MEDS ORDERED: Ondansetron 4 MG/2 ML VIAL IVP PRN (18:17)
[2020-11-20] MEDS ORDERED: Mag Hydrox/Al Hydrox/Simeth 30 ML UDC PO PRN (18:17)
[2020-11-20] MEDS ORDERED: MOM Conc 10 ML UD.LIQ PO PRN (18:17)
[2020-11-20] MEDS ORDERED: Perflutren Lipid Microsphere 1.3 ML in 0.9 % Sodium Chloride 8.7 ML IVP PRN (18:21)
[2020-11-20] MEDS ORDERED: Aspirin 325 MG TABLET PO STA (18:21)
[2020-11-20] MEDS ORDERED: Nitroglycerin 0.4 MG TAB.SUBL SL PRN (18:21)
[2020-11-20] MEDS ORDERED: Nitroglycerin 0.4 MG TAB.SUBL SL ONE (22:36)
[2020-11-20] MEDS: Doxycycline 100 MG in 0.9 % Sodium Chloride Mini Bag 100 ML IVPB SCH (23:29)
[2020-11-21 01:21] LABS: Chol/HDL Ratio 2.4 (0-4.9); Magnesium 2.2 mg/dL (1.6-2.6)
[2020-11-21 03:03] LABS: Hematocrit 34.2 % (35.3-44.9); Hemoglobin 10.9 g/dL (11.5-15.4); Mean Corpuscular HGB Conc 31.9 g/dL (31.6-35.5); Mean Corpuscular Hemoglobin 29.5 pg (28.0-33.3); Mean Corpuscular Volume 92.4 fL (83.0-100.0); Mean Platelet Volume 9.1 fL (9.4-12.4); Platelet Count 149 K/mcL (140-400); Red Cell Distribution Width 14.2 % (11.5-14.5); White Blood Count 7.6 K/mcL (4.3-11.1)
[2020-11-21] MEDS: Furosemide 40 MG/4 ML VIAL IVP SCH (09:26)
[2020-11-21] MEDS: Aspirin 81 MG TAB.CHEW PO SCH (09:26)
[2020-11-21] MEDS: amLODIPine 5 MG TABLET PO SCH (09:26)
[2020-11-21] MEDS ORDERED: 0.9 % Sodium Chloride 1,000 ML ONE (10:36)
[2020-11-21] MEDS ORDERED: ISOVUE-370 200 ML INFUS..BTL ONE ×3 (10:36→11:30)
[2020-11-21] MEDS ORDERED: *HR* Heparin 10,000 UNIT/10 ML VIAL ONE (10:36)
[2020-11-21] MEDS ORDERED: Heparin 1,000 UNITS/500 mL 500 ML ONE (10:36)
[2020-11-21] MEDS ORDERED: Nitroglycerin 1,000 MCG/5 ML VIAL IV ONE (10:37)
[2020-11-21] MEDS ORDERED: *HR* Midazolam HCl 2 MG/2 ML VIAL ONE (11:00)
[2020-11-21] MEDS ORDERED: *HR* FentaNYL (PF) 100 MCG/2 ML VIAL ONE (11:00)
[2020-11-21] MEDS ORDERED: *HR* Atropine Sulfate 1 MG/10 ML SYRINGE ONE (11:21)
[2020-11-21] MEDS ORDERED: Tirofiban 12.5 MG/250ML 12.5 MG/250 ML BAG ONE (11:26)
[2020-11-21] MEDS ORDERED: Tirofiban 12.5 MG/250ML 12.5 MG/250 ML BAG IVC SCH ×2 (12:15)
[2020-11-21] MEDS: Doxycycline 100 MG in 0.9 % Sodium Chloride Mini Bag 100 ML IVPB SCH ×2 (12:43→23:06)
[2020-11-21] MEDS ORDERED: traZODone 50 MG TABLET PO PRN (15:07)
[2020-11-21] MEDS ORDERED: Loratadine 10 MG TABLET PO PRN (15:07)
[2020-11-21] MEDS ORDERED: Doxycycline 100 MG in 0.9 % Sodium Chloride Mini Bag 100 ML IVPB SCH (23:00)
[2020-11-22 02:54] LABS: Hematocrit 36.7 % (35.3-44.9); Hemoglobin 11.9 g/dL (11.5-15.4); Mean Corpuscular HGB Conc 32.4 g/dL (31.6-35.5); Mean Corpuscular Hemoglobin 29.8 pg (28.0-33.3); Mean Corpuscular Volume 91.8 fL (83.0-100.0); Mean Platelet Volume 9.3 fL (9.4-12.4); Platelet Count 162 K/mcL (140-400); Red Cell Distribution Width 14.1 % (11.5-14.5); White Blood Count 7.8 K/mcL (4.3-11.1)
[2020-11-22 03:09] LABS: Calcium 8.8 mg/dL (8.6-10.3); Potassium 3.5 mEq/L (3.5-5.1)
[2020-11-22] MEDS: Aspirin 81 MG TAB.CHEW PO SCH (09:12)
[2020-11-22] MEDS: Furosemide 40 MG/4 ML VIAL IVP SCH (09:13)
[2020-11-22] MEDS: Cyanocobalamin (B-12) 1,000 MCG TABLET PO SCH (09:13)
[2020-11-22] MEDS: amLODIPine 5 MG TABLET PO SCH (09:13)
[2020-11-22] MEDS: Letrozole 2.5 MG TABLET PO SCH (11:02)
[2020-11-22] MEDS: *HR* Heparin 5,000 UNIT/ML VIAL SQ SCH ×2 (14:05→21:23)
[2020-11-22] MEDS: Doxycycline 100 MG CAPSULE PO SCH (17:20)
[2020-11-23 03:47] LABS: Calcium 8.9 mg/dL (8.6-10.3); Potassium 3.3 mEq/L (3.5-5.1)
[2020-11-23] MEDS: *HR* Heparin 5,000 UNIT/ML VIAL SQ SCH (05:56)
[2020-11-23] MEDS: Doxycycline 100 MG CAPSULE PO SCH (05:56)
[2020-11-23 08:00] VITALS: BP 167/88
[2020-11-23 08:37] LABS: Hematocrit 39.2 % (35.3-44.9); Hemoglobin 12.9 g/dL (11.5-15.4); Mean Corpuscular HGB Conc 32.9 g/dL (31.6-35.5); Mean Corpuscular Hemoglobin 29.7 pg (28.0-33.3); Mean Corpuscular Volume 90.1 fL (83.0-100.0); Mean Platelet Volume 9.1 fL (9.4-12.4); Platelet Count 171 K/mcL (140-400); Red Blood Count 4.35 M/mcL (3.82-4.97); Red Cell Distribution Width 13.8 % (11.5-14.5); White Blood Count 7.1 K/mcL (4.3-11.1)
[2020-11-23] MEDS: Letrozole 2.5 MG TABLET PO SCH (08:58)
[2020-11-23] MEDS: amLODIPine 5 MG TABLET PO SCH (08:58)
[2020-11-23] MEDS: Cyanocobalamin (B-12) 1,000 MCG TABLET PO SCH (08:59)
[2020-11-23] MEDS: Aspirin 81 MG TAB.CHEW PO SCH (08:59)
[2020-11-23] MEDS ORDERED: Furosemide 40 MG TABLET PO SCH (09:00)
[2020-11-23] MEDS ORDERED: Metoprolol XL (24 HR) Succ 25 MG TAB.ER.24H PO SCH (09:00)
== END 2020-11-23 10:47 | disposition home or self-care (01) | DRG 246 ==
LOC: 2ANU 14:02 → EMEROOARM 14:02 → SUATTDRO 18:24 → OBSVTOIN 18:24 → 2ANU 20:34
PROVIDERS: ADMIT Internal Medicine; ATTEND Internal Medicine

== ENCOUNTER 2021-07-19 11:43 | Inpatient (IN) ==
[2021-07-19 15:27] LABS: Basophils % 0.3 %; Eosinophils # 0.1 K/mcL (0.0-0.6); Eosinophils % 2.2 %; Hematocrit 36.7 % (35.3-44.9); Hemoglobin 11.3 g/dL (11.5-15.4); Immature Granulocytes % 0.2 % (0-4); Lymphocytes # 1.3 K/mcL (0.6-4.6); Lymphocytes % 19.9 %; Mean Corpuscular HGB Conc 30.8 g/dL (31.6-35.5); Mean Corpuscular Hemoglobin 28.3 pg (28.0-33.3); Mean Corpuscular Volume 91.8 fL (83.0-100.0); Mean Platelet Volume 9.3 fL (9.4-12.4); Monocytes # 0.8 K/mcL (0.0-1.3); Monocytes % 11.7 %; Neutrophils # 4.3 K/mcL (1.6-8.9); Platelet Count 171 K/mcL (140-400); Red Cell Distribution Width 14.6 % (11.5-14.5); Segmented Neutrophils % 65.7 %; White Blood Count 6.5 K/mcL (4.3-11.1)
[2021-07-19 15:35] LABS: INR 1.1; Prothrombin Time 11.8 Seconds (9.4-12.1)
[2021-07-19 15:37] LABS: Activated Partial Thrombo Time 34.5 Seconds (26.0-36.0)
[2021-07-19 15:47] LABS: Calcium 9.8 mg/dL (8.6-10.3); Potassium 4.5 mEq/L (3.5-5.1)
[2021-07-19 15:58] LABS: Troponin I 0.08 ng/mL (< 0.04)
[2021-07-19 16:08] LABS: Thyroid Stimulating Hormone 4.138 mcIU/mL (0.340-5.600)
[2021-07-19] MEDS ORDERED: Ondansetron 4 MG/2 ML VIAL IVP PRN (17:10)
[2021-07-19] MEDS ORDERED: Naloxone 0.4 MG/ML INJ IVP PRN (17:10)
[2021-07-19] MEDS ORDERED: *HR* Heparin 5,000 UNIT/ML VIAL IVP PRN ×2 (17:12)
[2021-07-19] MEDS ORDERED: Heparin 25,000UNIT/250ML 1/2NS 25,000 UNIT/250 ML IV.SOLN IVC SCH (17:15)
[2021-07-19 18:18] LABS: Heparin anti-factor XA UFH < 0.04 IU/mL (0.30-0.70)
[2021-07-19 18:22] LABS: INR 1.1
[2021-07-19] MEDS ORDERED: 0.9 % Sodium Chloride 500 ML IV ONE (22:51)
[2021-07-20] MEDS ORDERED: traZODone 50 MG TABLET PO PRN (00:05)
[2021-07-20] MEDS ORDERED: 0.9 % Sodium Chloride 1,000 ML IV ONE (02:07)
[2021-07-20 06:23] LABS: Calcium 8.1 mg/dL (8.6-10.3); Potassium 3.4 mEq/L (3.5-5.1)
[2021-07-20 06:24] LABS: Basophils % 0.4 %; Eosinophils # 0.2 K/mcL (0.0-0.6); Eosinophils % 3.9 %; Hematocrit 28.4 % (35.3-44.9); Immature Granulocytes % 0.4 % (0-4); Lymphocytes # 1.3 K/mcL (0.6-4.6); Lymphocytes % 26.7 %; Mean Corpuscular HGB Conc 31.7 g/dL (31.6-35.5); Mean Corpuscular Hemoglobin 28.7 pg (28.0-33.3); Mean Corpuscular Volume 90.4 fL (83.0-100.0); Mean Platelet Volume 10.1 fL (9.4-12.4); Monocytes # 0.7 K/mcL (0.0-1.3); Monocytes % 15.1 %; Neutrophils # 2.6 K/mcL (1.6-8.9); Platelet Count 121 K/mcL (140-400); Red Blood Count 3.14 M/mcL (3.82-4.97); Red Cell Distribution Width 14.7 % (11.5-14.5); Segmented Neutrophils % 53.5 %; White Blood Count 4.8 K/mcL (4.3-11.1)
[2021-07-20 06:46] LABS: Troponin I 0.09 ng/mL (< 0.04)
[2021-07-20] MEDS ORDERED: Loratadine 10 MG TABLET PO PRN (07:26)
[2021-07-20] MEDS: Aspirin 81 MG TAB.CHEW PO SCH (09:41)
[2021-07-20] MEDS: Letrozole 2.5 MG TABLET PO SCH (09:41)
[2021-07-20 13:20] LABS: Hematocrit 33.4 % (35.3-44.9); Hemoglobin 10.2 g/dL (11.5-15.4)
[2021-07-20 13:24] LABS: Basophils % 0.6 %; Eosinophils # 0.1 K/mcL (0.0-0.6); Eosinophils % 2.5 %; Hematocrit 31.2 % (35.3-44.9); Hemoglobin 9.9 g/dL (11.5-15.4); Immature Granulocytes % 1.1 % (0-4); Lymphocytes # 1.4 K/mcL (0.6-4.6); Lymphocytes % 26.7 %; Mean Corpuscular HGB Conc 31.7 g/dL (31.6-35.5); Mean Corpuscular Hemoglobin 28.1 pg (28.0-33.3); Mean Corpuscular Volume 88.6 fL (83.0-100.0); Mean Platelet Volume 9.8 fL (9.4-12.4); Monocytes # 0.7 K/mcL (0.0-1.3); Monocytes % 13.1 %; Platelet Count 140 K/mcL (140-400); Red Blood Count 3.52 M/mcL (3.82-4.97); Red Cell Distribution Width 14.6 % (11.5-14.5); White Blood Count 5.3 K/mcL (4.3-11.1)
[2021-07-20] MEDS ORDERED: *HR* FentaNYL (PF) 100 MCG/2 ML VIAL ONE (14:13)
[2021-07-20] MEDS ORDERED: *HR* Midazolam HCl 2 MG/2 ML VIAL ONE (14:13)
[2021-07-20] MEDS ORDERED: 0.9 % Sodium Chloride 500 ML ONE (14:14)
[2021-07-20] MEDS ORDERED: 0.9 % Sodium Chloride 1,000 ML ONE (14:38)
[2021-07-20] MEDS: *HR* HYDROcodone/Acet 5/325 mg TABLET PO PRN (19:54)
[2021-07-20] MEDS ORDERED: traZODone 50 MG TABLET PO SCH (21:00)
[2021-07-21] MEDS: *HR* HYDROcodone/Acet 5/325 mg TABLET PO PRN (04:03)
[2021-07-21 05:06] LABS: Hematocrit 30.8 % (35.3-44.9); Hemoglobin 9.3 g/dL (11.5-15.4); Mean Corpuscular HGB Conc 30.2 g/dL (31.6-35.5); Mean Corpuscular Hemoglobin 27.9 pg (28.0-33.3); Mean Corpuscular Volume 92.5 fL (83.0-100.0); Mean Platelet Volume 9.9 fL (9.4-12.4); Platelet Count 140 K/mcL (140-400); Red Blood Count 3.33 M/mcL (3.82-4.97); Red Cell Distribution Width 14.7 % (11.5-14.5); White Blood Count 5.8 K/mcL (4.3-11.1)
[2021-07-21 05:33] LABS: Calcium 8.3 mg/dL (8.6-10.3); Potassium 3.9 mEq/L (3.5-5.1)
[2021-07-21] MEDS: Letrozole 2.5 MG TABLET PO SCH (08:49)
[2021-07-21] MEDS: Aspirin 81 MG TAB.CHEW PO SCH (08:49)
[2021-07-21] MEDS ORDERED: Furosemide 20 MG TABLET PO SCH (09:00)
[2021-07-21 09:13] LABS: Iron 35 mcg/dL (50-170)
[2021-07-21 09:31] LABS: Ferritin 22 ng/mL (10-120)
[2021-07-21] MEDS ORDERED: Metoprolol XL (24 HR) Succ 25 MG TAB.ER.24H PO SCH (10:00)
[2021-07-21 11:15] VITALS: BP 154/81; PULSE 109; TEMP 98.5; O2SAT 92
[2021-07-21 11:32] LABS: Folate 11.3 ng/mL (3.0-16.0)
[2021-07-24 07:56] LABS: % Iron Saturation 11 % (15-50); Transferrin 231 mg/dL (200-400)
[2021-07-24] MEDS ORDERED: Cyanocobalamin (B-12) 1,000 MCG TABLET PO SCH (09:00)
== END 2021-07-21 15:04 | disposition home or self-care (01) | DRG 242 ==
LOC: 2ANU 11:43 → EMEROOARM 11:43 → 2ANU 18:36 → SUATTDRO 07-20 11:17
PROVIDERS: ADMIT Internal Medicine; ATTEND Internal Medicine